=== PATIENT | male | born 1965 | race Caucasian/White ===

== ENCOUNTER 2020-08-20 01:42 | Emergency (ER) | payer OTHER, BC ==
[2020-08-20 02:04] VITALS: BP 166/103; PULSE 97; RESP 20; TEMP 98.7
[2020-08-20] MEDS ORDERED: KETOROLAC 15 MG/ML 1 ML VIAL IM STA (02:10)
--- NOTE | 2020-08-20 02:28 | ED ---
General Adult HPI - General Chief complaint: Extremity Injury, Lower Stated complaint: Groin Strain, [facility] Source: patient, family Mode of arrival: wheelchair Limitations: no limitations - History of Present Illness Initial comments: 54-year-old male presents to the emergency room for a chief complaint of left groin pain. Patient states she was at work stepping out of a machine that is about 3-4 feet off the ground. Patient reports that he immediately felt a strain in his left groin. States it is somewhat painful to ambulate with. States it is worse when he lifts his leg. In the car. States it does not hurt much when he is sitting down. Patient denies any other injuries.Patient has no other complaints at this time including shortness of breath, chest pain, abdominal pain, nausea or vomiting, headache, or visual changes. - Related Data Allergies Allergy/AdvReac Type Severity Reaction Status Date / Time No Known Allergies Allergy Verified 08/20/20 02:04 Review of Systems ROS Statement: Those systems with pertinent positive or pertinent negative responses have been documented in the HPI. ROS Other: All systems not noted in ROS Statement are negative. Past Medical History History of Any Multi-Drug Resistant Organisms: None Reported Past Psychological History: No Psychological Hx Reported Smoking Status: Current every day smoker Past Alcohol Use History: None Reported Past Drug Use History: None Reported General Exam Limitations: no limitations General appearance: alert, in no apparent distress Head exam: Present: atraumatic Eye exam: Present: normal appearance, PERRL, EOMI ENT exam: Present: normal exam, mucous membranes moist Neck exam: Present: normal inspection, full ROM. Absent: tenderness Respiratory exam: Present: normal lung sounds bilaterally. Absent: respiratory distress, wheezes Cardiovascular Exam: Present: regular rate, normal rhythm, normal heart sounds GI/Abdominal exam: Present: soft, normal bowel sounds. Absent: distended, tenderness Extremities exam: Present: tenderness (Tenderness to the proximal medial thigh and groin. No bulging or evidence of hernia.), normal capillary refill (Capillary refill less than 2 seconds, diffuse pulse 2+ left lower extremity), other (Sensation intact before extremity). Absent: full ROM (Patient has about 90 flexion of the left hip.) Course Vital Signs 08/20/20 01:57 Temperature 98.7 F Pulse Rate 97 Respiratory 20 Rate Blood Pressure 166/103 O2 Sat by Pulse 96 Oximetry Medical Decision Making - Medical Decision Making Vitals are stable. Patient is fairly hypertensive likely secondary to pain. Physical exam is reveal pain with movement of the left hip and tenderness to the left groin area. No evidence of hernia. Neurovascular status intact left lower extremity. X-ray of the hip and pelvis showed no acute findings. Patient was given Toradol. He was referred to orthopedic surgery will follow up with his doctor as well. He will return for any worsening symptoms. Disposition Clinical Impression: Leg pain, left Disposition: HOME SELF-CARE Condition: Good Instructions (If sedation given, give patient instructions): Groin Strain (ED) Additional Instructions: Please take Motrin and Tylenol for pain. If pain is severe take Tylenol [address] operate machinery while taking this. Please do gentle stretching. Follow-up with your doctor or orthopedics. If you have worsening symptoms return to the emergency room. Is patient prescribed a controlled substance at d/c from ED?: No Referrals: Faustino Whitney MD [STAFF PHYSICIAN] - 1-2 days Time of Disposition: 02:39
--- NOTE | 2020-08-20 02:28 | XR ---
EXAM: XR Pelvis Complete, 3 or More Views CLINICAL HISTORY: ITS.REASON XR Reason: pain TECHNIQUE: Frontal and lateral or oblique views of the pelvis. COMPARISON: No relevant prior studies available. FINDINGS: Bones/joints: No acute fracture. No dislocation. Small ossicle adjacent to the lesser trochanter on both sides, likely from prior tenderness/avulsion injury. Soft tissues: Unremarkable. IMPRESSION: No acute findings. Small ossicle adjacent to the lesser trochanter on both sides, likely from prior tenderness/avulsion injury.
[2020-08-20] MEDS ORDERED: ACET/COD 300 MG/30 MG STARTER PACK 6 TAB BTL PO STA (02:40)
== END 2020-08-20 02:55 | disposition home or self-care (01) ==
LOC: EC 01:42
DX: M79.605 Pain in left leg (principal); F17.200 Nicotine dependence, unspecified, uncomplicated
CPT/HCPCS: 73502; 99283; 96372; J1885